=== PATIENT | male | born 1940 ===

== ENCOUNTER 2018-04-27 11:18 | Emergency (ER) | payer OTHER ==
--- NOTE | 2018-04-27 12:36 | ED PDOC ---
Arrival/HPI - General Chief Complaint: Abnormal Skin Integrity Time Seen by Provider: 04/27/18 11:44 Historian: Patient - History of Present Illness Narrative History of Present Illness (Text): 04/27/18 15:47 78-year-old male presents today for evaluation of fungus to his first and second toes on both feet. Patient states he noticed he does started to develop fungus on both feet for the past 2 days. He denies trauma or injury. No chest pain or shortness of breath. No fevers or chills. Patient states he does not have a primary care doctor to follow-up with. Patient states he just wanted more information about fungus. He states he's been trying shade but or Vicks VapoRub and other homeopathic treatments without improvement Past Medical History - Provider Review Nursing Documentation Reviewed: Yes - Travel History Have you recently traveled outside [place] w/in the past 3 mons?: No - Tetanus Immunization Tetanus Immunization: Unknown - Endocrine/Metabolic Hx Diabetes Mellitus Type 2: Yes - Genitourinary/Gynecological Hx Prostate Problems: Yes - Psychiatric Hx Substance Use: No - Surgical History Other/Comment: L rotator cuff sx - Anesthesia Hx Anesthesia: Yes Hx Anesthesia Reactions: No Hx Malignant Hyperthermia: No Family/Social History - Physician Review Nursing Documentation Reviewed: Yes Family/Social History: Unknown Family HX Smoking Status: Never Smoked Hx Alcohol Use: No Hx Substance Use: No Allergies/Home Meds Allergies/Adverse Reactions: Allergies No Known Allergies Allergy (Verified 04/27/18 11:41) Review of Systems - Review of Systems Constitutional: absent: Fatigue, Fevers Respiratory: absent: SOB, Cough Cardiovascular: absent: Chest Pain, Palpitations Gastrointestinal: absent: Abdominal Pain, Nausea, Vomiting Skin: Rash (fungus to 1st and 2nd toes of both feet) Physical Exam Vital Signs Reviewed: Yes Temperature: Afebrile Blood Pressure: Hypertensive Pulse: Regular Respiratory Rate: Normal Appearance: Positive for: Well-Appearing, Non-Toxic, Comfortable Pain Distress: None Mental Status: Positive for: Alert and Oriented X 3 - Systems Exam Head: Present: Atraumatic Respiratory/Chest: Present: Clear to Auscultation Cardiovascular: Present: Regular Rate and Rhythm Lower Extremity: Present: Normal ROM, Capillary Refill < 2 s, Other (1st and 2nd toenails are partiall yellow with slight increase in thickness.). 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 Patient states that he does not want to take any medications but he will follow up with the biomass boiler operator. I've advised the patient if he does not want to take antifungal by mouth we can give him antifungal creams topical that will not truly resolve this infection. Patient verbalizes understanding of discharge instructions and need for immediate followup. Impression: Onychomycosis Follow up with the foot doctor within the next 2 days. return if symptoms worsen,persist or if new symptoms develop. pt left the ER without discharge paperwork and without checking his elevated blood pressure. i attempted to call the patient; no answer and unable to leave voicemail. Disposition/Present on Arrival - Present on Arrival Any Indicators Present on Arrival: No History of DVT/PE: No History of Uncontrolled Diabetes: No Urinary Catheter: No History of Decub. Ulcer: No History Surgical Site Infection Following: None - Disposition Have Diagnosis and Disposition been Completed?: Yes Diagnosis: Onychomycosis Disposition: HOME/ ROUTINE Disposition Time: 12:34 Patient Plan: Discharge Condition: GOOD Discharge Instructions (ExitCare): Fungal Nail Infections Additional Instructions: Follow up with the foot doctor within the next 2 days. return if symptoms worsen,persist or if new symptoms develop. Prescriptions: Clotrimazole 1% Cream [Lotrimin 1%] 1 appl TP BID #1 tube Referrals: Saul Veloz DPM [Staff Provider] - Follow up with primary Renan Calderón DPM [Staff Provider] - Follow up with primary Mary Odonnell MD [Medical Doctor] - Follow up with primary [facility] [Outside] - [facility] up with [facility] [Outside] - Follow up with primary Forms: [employer] ([place])
[2018-04-27 12:55] VITALS: BP 177/95; PULSE 89; RESP 18; TEMP 98.3; O2SAT 97
== END 2018-04-27 12:45 | disposition home or self-care (01) ==
LOC: ED 11:18
DX: B35.1 Tinea unguium (principal); E11.9 Type 2 diabetes mellitus without complications